=== PATIENT | male | born 1995 | race Caucasian/White ===

== ENCOUNTER 2017-10-21 08:26 | Emergency (ER) | payer OTHER ==
[~2017-10-21] VITALS: Ht 182.9 cm; Wt 81.6 kg
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
[2017-10-21] MEDS ORDERED: CYCLOBENZAPRINE10 M1 PO (08:53)
[2017-10-21] MEDS ORDERED: IBUPROFEN800 M1 PO (08:53)
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
[2017-10-21 11:12] VITALS: BP 140/58
== END 2017-10-21 11:14 ==
LOC: ERH 08:26
DX: S39.012A Strain of muscle, fascia and tendon of lower back, initial encounter (principal); S86.911A Strain of unspecified muscle(s) and tendon(s) at lower leg level, right leg, initial encounter; V89.2XXA Person injured in unspecified motor-vehicle accident, traffic, initial encounter
CPT/HCPCS: 72080; 73562-RT